=== PATIENT | female | born 1950 | race Caucasian/White ===

== ENCOUNTER 2019-08-21 10:20 | Outpatient (CLI) | payer MEDICARE, SELFPAY ==
--- NOTE | ~2019-08-21 | MM_ITS ---
EXAMINATION: MM screening [facility] BI w prabhu HISTORY: Screening mammogram TECHNIQUE: Craniocaudal and mediolateral oblique 3-D tomosynthesis images were obtained and synthetic 2-D images were generated. CAD analysis was submitted and interpreted. COMPARISON: 08/04/2018, 06/11/2017, 05/30/2016 bilateral digital screening mammogram examinations BREAST PARENCHYMAL COMPOSITION: There are scattered areas of fibroglandular density. FINDINGS: Mild stable right superolateral subareolar asymmetry since 06/09/2016. There is no evidence of suspicious mass, calcification, or architectural distortion to suggest malignancy in either breast . There has been no suspicious interval change. IMPRESSION: 1. No mammographic evidence of malignancy. 2. Recommend routine screening mammography in one year. BI-RADS Category 2: Benign finding(s). Reviewed, dictated and finalized at location A.
== END 2019-08-21 10:21 | disposition home or self-care (01) ==
LOC: ANHIMG 10:24
PROVIDERS: PCP Family Medicine; Visit Provider Family Medicine
DX: Z12.31 Encounter for screening mammogram for malignant neoplasm of breast (principal)
CPT/HCPCS: 77063; 77067

== ENCOUNTER 2020-09-21 15:06 | Outpatient (CLI) | payer MEDICARE, SELFPAY ==
--- NOTE | ~2020-09-21 | MM_ITS ---
EXAMINATION: MM screening [facility] BI w prabhu HISTORY: Screening TECHNIQUE: Craniocaudal and mediolateral oblique 3-D tomosynthesis images were obtained and synthetic 2-D images were generated. CAD analysis was submitted and interpreted. COMPARISON: Comparison to multiple prior studies sequentially, with oldest reviewed study dated 12/30. BREAST PARENCHYMAL COMPOSITION: There are scattered areas of fibroglandular density. FINDINGS: There is a periareolar mass in the right breast measuring approximately 6 mm. The left angel st is stable. IMPRESSION: 1. Right periareolar mass measuring 6 mm. 2. Additional spot compression and mediolateral views with possible follow-up breast ultrasound recom mended. BI-RADS Category 0: Incomplete: Needs additional imaging evaluation. Reviewed, dictated and finalized at location A. IMPRESSION: 1. Right periareolar mass measuring 6 mm. 2. Additional spot compression and mediolateral views with possible follow-up b reast ultrasound recommended. BI-RADS Category 0: Incomplete: Needs additional imaging evaluation.
== END 2020-09-21 15:07 | disposition home or self-care (01) ==
LOC: ANHIMG 15:07
PROVIDERS: PCP Family Medicine; Visit Provider Family Medicine
DX: Z12.31 Encounter for screening mammogram for malignant neoplasm of breast (principal)
CPT/HCPCS: 77063; 77067

== ENCOUNTER 2020-10-18 13:20 | Outpatient (CLI) | payer MEDICARE, SELFPAY ==
--- NOTE | ~2020-10-18 | MMUS_ITS ---
EXAMINATION: MM diagnostic mammo unilat RT, US breast RT limited HISTORY: Follow-up right breast asymmetries TECHNIQUE: Additional 3-D tomosynthesis images of the right breast were performed and synthetic 2-D i mages were generated. CAD analysis was submitted and interpreted. High resolution Limited right breas t ultrasound was performed. COMPARISON: Comparison to multiple prior studies sequentially, with oldest reviewed study dated 09/2015. BREAST PARENCHYMAL COMPOSITION: Breast composed of scattered areas of fibroglandular density. FINDINGS: MAMMOGRAPHIC FINDINGS: There are no suspicious masses, calcifications or architectural distortion with spot compression or m ediolateral views of the right breast. ULTRASOUND: Limited right breast ultrasound: Normal heterogeneous echotexture without focal mass. IMPRESSION: 1. No evidence for malignancy in the right breast. 2. Routine yearly screening mammogram and regular clinical breast examination are recommended. BI-RADS Category 1: Negative Reviewed, dictated and finalized at location A. IMPRESSION: 1. No evidence for malignancy in the right breast. 2. Routine yearly screening mammogram and regular clinical breast examination a re recommended. BI-RADS Category 1: Negative
== END 2020-10-18 13:21 | disposition home or self-care (01) ==
PROVIDERS: PCP Family Medicine; Visit Provider Family Medicine
DX: R92.8 Other abnormal and inconclusive findings on diagnostic imaging of breast (principal)
CPT/HCPCS: 76642; 77065

== ENCOUNTER 2021-12-13 14:39 | Outpatient (CLI) | payer MEDICARE, SELFPAY ==
--- NOTE | ~2021-12-13 | MM_ITS ---
EXAMINATION: MM screening [facility] BI w prabhu HISTORY: Screening TECHNIQUE: Craniocaudal and mediolateral oblique 3-D tomosynthesis images were obtained and synthetic 2-D images were generated. CAD analysis was submitted and interpreted. COMPARISON: Comparison to multiple prior studies sequentially, with oldest reviewed study dated 11/2016. BREAST PARENCHYMAL COMPOSITION: There are scattered areas of fibroglandular density. FINDINGS: There is no evidence of suspicious mass, calcification, or architectural distortion to sugg est malignancy in either breast. There has been no suspicious interval change. IMPRESSION: 1. No mammographic evidence of malignancy. 2. Recommend routine screening mammography in one year. BI-RADS Category 1: Negative Reviewed, dictated and finalized at location A.
== END 2021-12-13 14:40 | disposition home or self-care (01) ==
PROVIDERS: PCP Family Medicine; Visit Provider Family Medicine
DX: Z12.31 Encounter for screening mammogram for malignant neoplasm of breast (principal)
CPT/HCPCS: 77063; 77067

== ENCOUNTER 2023-03-11 09:34 | Outpatient (CLI) | payer MEDICARE, SELFPAY ==
--- NOTE | ~2023-03-11 | MM_ITS ---
EXAMINATION: MM screening [facility] BI w prabhu HISTORY: Screening mammogram TECHNIQUE: Craniocaudal and mediolateral oblique 3-D tomosynthesis images were obtained and synthetic 2-D images were generated. CAD analysis was submitted and interpreted. COMPARISON: 12/09/2021 bilateral screening mammogram 10/18/2020 diagnostic right mammogram and limited right breast ultrasound, reported negative 09/21/2020, 08/21/2019 bilateral screening mammogram examinations BREAST PARENCHYMAL COMPOSITION: There are scattered areas of fibroglandular density. FINDINGS: There is no evidence of suspicious mass, calcification, or architectural distortion to sugg est malignancy in either breast. There has been no suspicious interval change. IMPRESSION: 1. No mammographic evidence of malignancy. 2. Recommend routine screening mammography in one year. BI-RADS Category 1: Negative Reviewed, dictated and finalized at location A. TRICAL APPLIANCE SERVICER
== END 2023-03-11 09:35 | disposition home or self-care (01) ==
LOC: ANHIMG 09:35
PROVIDERS: PCP Family Medicine; Visit Provider Nurse Practitioner Family
DX: Z12.31 Encounter for screening mammogram for malignant neoplasm of breast (principal)
CPT/HCPCS: 77063; 77067

== ENCOUNTER 2025-02-01 10:27 | Emergency (ER) | payer MEDICARE, SELFPAY ==
--- NOTE | ~2025-02-01 | CT_ITS ---
EXAMINATION: CT abdomen pelvis wo con, 02/01/2025 13:30 CDT HISTORY: R flank pain COMPARISON: No comparisons available. TECHNIQUE: CT scan of the abdomen and pelvis was performed without IV contrast. One or more of the following dose reduction techniques were used: automated exposure control, adjustment of the mA and/or kV according to patient size, use of iterative reconstruction technique. Unless otherwise stated, incidental findings do not require dedicated follow up imaging FINDINGS: CT abdomen: LUNG BASES: Left lower lobe minimal infiltrate noted. LIVER: Unremarkable, liver contours intact, no lesions. SPLEEN: Unremarkable, no splenomegaly. KIDNEYS: Right Kidney: Right kidney peripelvic subcentimeter probable renal cysts. Left Kidney: Left kidney subcentimeter calcified probable hemorrhagic renal cyst 5 x 6 mm superior pole, outpatient ultrasound suggested. ADRENAL GLANDS: Unremarkable. PANCREAS: Mild pancreatic atrophy. GALLBLADDER/BILIARY: Post cholecystectomy. STOMACH AND ESOPHAGUS: Moderate hiatal hernia. BOWEL/MESENTERY: Moderate diverticulosis. Moderate fecal content. No colitis or diverticulitis. Appendix not identified. Mesentery normal. No thickened or dilated loops of small bowel. ADENOPATHY/RETROPERITONEUM: No lymphadenopathy. AORTA/VASCULATURE: Normal caliber aorta. FREE FLUID OR FREE AIR: Trace free fluid.. CT pelvis: SOLID ORGANS/REPRODUCTIVE: Post hysterectomy. No adnexal mass. BLADDER: Within normal limits. OSSEOUS STRUCTURES: No acute osseous abnormality.No suspicious lesions. OVERLYING SOFT TISSUES: Unremarkable. IMPRESSION: 1. No etiology identified to explain the patient's symptoms. Follow-up suggested if symptoms persist. Reviewed, dictated and finalized at location P. IMPRESSION: 1. No etiology identified to explain the patient's symptoms. Follow-up suggeste d if symptoms persist.
[2025-02-01 10:29] VITALS: BP 155/85; PULSE 86; RESP 16; TEMP 36.6; O2SAT 100
--- OUTSIDE RECORDS SUMMARY | 2025-02-01 11:29 | XMS_ITS | Clinical Summary ---
Author Organization [facility] Address [address] [place] [address] Phone Care Team Providers Care Spear Fisher Name Role Phone Jules Escobar MD Primary Care Provider [phone] Allergies No known active allergies Medications omeprazole (PRILOSEC) 20 mg Oral CpDR Take 20 mg by mouth daily. Active atorvastatin (LIPITOR) 20 mg Oral tablet Take 20 mg by mouth Daily LATE. Active LORATADINE/PSEUD OEPHEDRINE SUL (CLARITIN-D 24 HOUR ORAL) Take 1 Tab by mouth daily. 09/08/2010 Active Active Problems Problem Noted Date Diagnosed Date Primary localized osteoarthritis of left knee Anemia 09/26/2010 Overview (09/26/2010): Post-op, after receiving Lovenox prophylaxis. Atrial fibrillation with rapid ventricular respo nse 09/24/2010 Hypoxia 09/24/2010 Pain 09/24/2010 Nausea & vomiting 09/24/2010 Hypokalemia 09/24/2010 S/P VALERIE-BSO 09/24/2010 Hyperlipidemia 09/24/2010 Encounters Date Type Department Care Team Description 01/12/2025 External Device Data STL ABSTRACTION Provider, Abstract 01/05/2025 External Device Data STL ABSTRACTION Provider, Abstract 12/14/2024 1:00 PM CDT Office Visit [facility] the [facility] [address] [place] [address] Jayjay Hermosillo MD Primary localized osteoarthritis of left knee (Primary Dx) 11/20/2024 Telephone [facility] [address] [place] [address] [address] [place] [address] Jayjay Hermosillo MD reschedule appt 11/19/2024 10:30 AM CDT Office Visit [facility] [address] [place] [address] [address] [place] [address] Jayjay Hermosillo MD Left knee pain, unspecified chronicity (Primary Dx); Primary localized osteoarthritis of left knee 11/19/2024 Orders Only [facility] at the [address] [place] [address] Jayjay Hermosillo MD Primary localized osteoarthritis of left knee (Primary Dx) 11/19/2024 Orders Only [facility] at the [address] [place] [address] Jayjay Hermosillo MD Primary localized osteoarthritis of left knee (Primary Dx) 11/04/2024 External Device Data STL ABSTRACTION Provider, Abstract 11/04/2024 External Device Data STL ABSTRACTION Provider, Abstract 11/04/2024 External Device Data STL ABSTRACTION Provider, Abstract 11/04/2024 External Device Data STL ABSTRACTION Provider, Abstract from Last 3 Months Social History Tobacco Use Types Packs/Day Years Used Date Smoking Tobacco: Former Cigarettes 1.5 15 0 04/22/1972 - 04/22/1987 Alcohol Use Standard Drinks/Week Comments Yes 17.5 (1 standard drink = 0.6 oz pure alcohol) Comments Unknown Sex and Gender Information Value Date Recorded Sex Assigned at Not on file 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 Gender Identity Not on file Sexual Orientation Not on file Last Filed Vital Signs Vital Sign Reading Time Taken Comments Blood Pressure 141/61 10/29/2024 10:27 AM CDT Pulse 68 10/29/2024 10:27 AM CDT Temperature 36.7 C (98 F) 09/27/2010 7:41 AM CDT Respiratory Rate 14 09/27/2010 7:41 AM CDT Oxygen Saturation 93% 09/27/2010 7:41 AM CDT Inhaled Oxygen Concentration - - Weight 74.8 kg (165 lb) 12/14/2024 1:05 PM CDT Height 160 cm (5' 3) 12/14/2024 1:05 PM CDT Body Mass Index 29.23 12/14/2024 1:05 PM CDT Plan of Treatment Upcoming Encounters Date Type Department Care Team (Late st Contact Info) Description 07/20/2025 1:00 PM CDT Office Visit [facility] [address] [place] [address] Jayjay Hermosillo MD [address] [place] [address] Health Maintenance Due Date Last Done Comments DTAP/TDAP/TD VACCINES (1 - Tdap) 1968 COLORECTAL SCREENING 1994 Colorectal Cancer Screening 1994 FIT-DNA Q 3 years 1994 FIT/FOBT Q 1 year 1994 Flex Sig/CT Colonography Q 5 years 1994 PNEUMOCOCCAL VACCINE 50+ YEARS (1 of 1 - PCV) 06/16/19 00 ZOSTER VACCINE (1 of 2) 1999 OSTEOPOROSIS SCREENING 2014 RSV VACCINE (60+ or ) (1 - 1-dose 75+ series) 2024 INFLUENZA VACCINE (#1) 2024 Insurance [facility] [id number] [id number] Advance Directives For more information, please contact: [phone] * Full Code (Latest Code Status on File) Date Activated Date Inactivated Comments 09/26/2010 10:58 AM 09/27/2010 12:37 PM * Full Code Date Activated Date Inactivated Comments 09/21/2010 2:49 PM 09/26/2010 10:58 AM * Full Code Date Activated Date Inactivated Comments 09/21/2010 7:03 AM 09/21/2010 2:49 PM * Full Code Date Activated Date Inactivated Comments 09/21/2010 6:03 AM 09/21/2010 7:03 AM Care Teams Spear Fisher Relationship Specialty Start Date End Date Jules Escobar MD [address] [place] [id number] PCP - General Family Practice 08/31/10
--- OUTSIDE RECORDS SUMMARY | 2025-02-01 11:29 | XMS_ITS | Clinical Summary ---
Author Organization [facility] Address [address] [place] [id number] Care Team Providers Care Craft Artist Name Role Phone Jules Escobar MD Primary Care Provider [phone] Social History Tobacco Use Types Packs/Day Years Used Date Smoking Tobacco: Never Assessed Comments Unknown Sex and Gender Information Value Date Recorded Sex Assigned at Not on file Legal Sex Female 4:54 PM CDT Gender Identity Not on file Sexual Orientation Not on file Plan of Treatment Health Maintenance Due Date Last Done Comments Colorectal Cancer Screening Colonoscopy (10 Years) 1949 Hepatitis C 1967 DTaP, Tdap and Td Vaccines ( 1 - Tdap) 1968 Pneumococcal Vaccine: 50+ Ye ars (1 of 1 - PCV) 1999 Zoster Vaccines (1 of 2) 1999 Dexa Scan (General) 2014 RSV Immunization or 60+ Years (1 - 1-dose 75+ series) 2024 COVID-19 Vaccine (1 - 2023-2 5 season) 2024 Influenza Adult (#1) 2025 Meningococcal B Vaccine Aged Out No l onger eligible based on patient's age to complete this topic Meningococcal Vaccine Aged Out No christian justine eligible based on patient's age to complete this topic RSV Immunizations Under 20 Months Aged Out No longer eligible based on patient's age to complete this topic Care Teams Craft Artist Relationship Specialty Start Date End Date Jules Escobar MD [address] [place] [id number] PCP - General 01/11/15
--- NOTE | 2025-02-01 13:25 | ED.ABDPAIN ---
HPI - Abdominal Pain General Chief Complaint: Abdominal Pain <LAVERN Larson Last Filed: 02/01/25 13:40> Stated Complaint: right flank pain <LAVERN Larson Last Filed: 02/01/25 13:40> Time Seen by Provider: 02/01/25 13:25 <LAVERN Larson Last Filed: 02/01/25 13:40> Focused HPI: Patient is a 74-year-old female who presents the ED with report of right flank pain. Patient reports she began having pain in her right flank, right-sided abdomen in the middle of the night last night. States pain is worse with movement. She has not taken anything for the pain. Denies ever having pain like this before. Denies previous history of kidney stones. States she was referred to the ED by her primary care doctor. Denies N/V/D, constipation, dysuria, hematuria, fevers. GENERAL: Well-appearing, well-nourished, and in no acute distress. HEAD: Normocephalic, atraumatic. CHEST: Clear to auscultation. ?No respiratory distress. HEART: Regular rate and rhythm.? MSK: TTP throughout R lateral abdomen, R flank region. NEURO: ?Alert and oriented x3. Patient screened in triage and initial orders placed.? ?Additional care and disposition to be based upon?diagnostic testing and treatment. <Yovana Raphael PA-C - Last Filed: 02/01/25 13:40> Source: patient <LAVERN Larson Last Filed: 02/01/25 13:40> Mode of arrival: ambulatory <LAVERN Larson Last Filed: 02/01/25 13:40> Limitations: no limitations <LAVERN Larson Last Filed: 02/01/25 13:40> History of Present Illness HPI narrative: Agree with HPI. Patient reports yesterday she did lift a heavy duct event and she also threw herself onto a bed injuring her right side. Right-sided hurt her worse this morning when she woke up and was worse with physical movements and direct palpation. No difficulty breathing. No GI issues. <Andi Martinez MD - Last Filed: 02/01/25 16:12> Related Data Allergies/Adverse Reactions: Allergies Allergy/AdvReac Type Severity Reaction Status Date / Time chlorhexidine Allergy Unknown Rash Verified 02/01/25 13:45 sulfamethoxazole Allergy Unknown Rash Verified 02/01/25 13:45 <Yovana Raphael PA-C - Last Filed: 02/01/25 13:40> Review of Systems Review of Systems: All systems reviewed & are unremarkable except as noted in HPI and below <Andi Martinez MD - Last Filed: 02/01/25 16:12> Constitutional: Constitutional: Reports no additional constitutional complaints <Andi Martinez MD - Last Filed: 02/01/25 16:12> Cardiovascular: Cardiovascular: Reports no additional cardiovascular complaints <Andi Martinez MD - Last Filed: 02/01/25 16:12> Respiratory: Respiratory: Reports no additional respiratory complaints <Andi Martinez MD - Last Filed: 02/01/25 16:12> Gastrointestinal: Gastrointestinal: Reports no additional gastrointestinal complaints <Andi Martinez MD - Last Filed: 02/01/25 16:12> REPLACED BY [facility] Past Medical History Medical History: Medical History Degenerative joint disease of knee Left knee pain Mixed hyperlipidemia GERD (gastroesophageal reflux disease) Allergic rhinitis Overweight (BMI 25.0-29.9) Family history of stroke Family history of diabetes mellitus <Yovana Raphael PA-C - Last Filed: 02/01/25 13:40> Surgical History Surgical History: Surgical History Hx of cholecystectomy History of hysterectomy <Yovana Raphael PA-C - Last Filed: 02/01/25 13:40> Family History Family History: Family History Father Heart disease Mother Cataract Pancreatic cancer <Yovana Raphael PA-C - Last Filed: 02/01/25 13:40> Social History Social History: Social History Smoking status: Never smoker Alcohol intake: current Substance use type: does not use Lack of Transportation: No Lack of Food: Sometimes True Current Housing: I Have Housing Concerned About Future Housing: No Difficulty Paying Gas/Electric Bills: No Difficulty Paying for Meds: No Currently Unemployed: No Education: High School Diploma/GED Difficulty w/ Childcare or Family Care: No Gender identity (if verbalized by the patient): Female <Yovana Raphael PA-C - Last Filed: 02/01/25 13:40> Exam Narrative: GENERAL: Well-appearing, well-nourished, and in no acute distress. HEAD: Normocephalic, atraumatic. ENT: Mucous membranes moist. CHEST: Clear to auscultation. No respiratory distress. HEART: Regular rate and rhythm. Normal peripheral pulses. ABDOMEN: Soft, nontender, nondistended. No CVA tenderness. Mild discomfort over the obliques in the mid-axillary line EXTREMITIES: Normal range of motion. No edema. SKIN: Warm, dry, no rash. NEURO: Alert and oriented x3. PSYCH: Normal mood and affect. <Andi Martinez MD - Last Filed: 02/01/25 16:12> Course Course Emergency Course: Patient informed of results. White blood cell count 11.8, CMP unremarkable. Urinalysis with slight UTI. Appropriate for discharge home. CT without acute process. <Andi Martinez MD - Last Filed: 02/01/25 16:12> Vital Signs Vital signs: Vital Signs Temperature 97.9 F 02/01/25 10:29 Pulse Rate 86 02/01/25 10:29 Respiratory Rate 16 02/01/25 10:29 Blood Pressure 155/85 H 02/01/25 10:29 Pulse Oximetry 100 02/01/25 10:29 Oxygen Delivery Room Air 02/01/25 10:29 Temperature 97.9 F 02/01/25 10:29 Pulse Rate 82 02/01/25 16:00 Respiratory Rate 18 02/01/25 16:00 Blood Pressure 151/81 H 02/01/25 16:00 Pulse Oximetry 99 02/01/25 16:00 Oxygen Delivery Room Air 02/01/25 16:00 <Yovana Raphael PA-C - Last Filed: 02/01/25 13:40> Vital Signs Temperature 97.9 F 02/01/25 10:29 Pulse Rate 86 02/01/25 10:29 Respiratory Rate 16 02/01/25 10:29 Blood Pressure 155/85 H 02/01/25 10:29 Pulse Oximetry 100 02/01/25 10:29 Oxygen Delivery Room Air 02/01/25 10:29 Temperature 97.9 F 02/01/25 10:29 Pulse Rate 82 02/01/25 16:00 Respiratory Rate 18 02/01/25 16:00 Blood Pressure 151/81 H 02/01/25 16:00 Pulse Oximetry 99 02/01/25 16:00 Oxygen Delivery Room Air 02/01/25 16:00 <Andi Martinez MD - Last Filed: 02/01/25 16:12> MDM - Abdominal Pain MDM Narrative Medical decision making narrative: MSE by TONY in triage. <Yovana Raphael PA-C - Last Filed: 02/01/25 13:40> Lab Data Result diagrams: 02/01/25 13:53 02/01/25 13:53 <Yovana Raphael PA-C - Last Filed: 02/01/25 13:40> Labs: Lab Results 02/01/25 02/01/25 Range/Units 13:53 15:43 WBC 11.8 H (4.5-10.0) K/mm3 RBC 4.28 (4.2-5.4) M/mm3 Hgb 14.4 (12.0-15.0) g/dL Hct 43.2 (37.0-47.0) % MCV 100.9 H (80-100) fl MCH 33.6 (26-34) pg MCHC 33.3 (32-36) g/dl RDW 13.4 (11.5-14.5) % Plt Count 203 (150-375) k/mm3 MPV 10.2 (7.4-10.4) fl Immature Gran % (Auto) 0.3 (0-0.5) % Neut % (Auto) 69.4 (45.5-73.1) % Lymph % (Auto) 22.8 (18.3-44.2) % [place] % (Auto) 6.9 (2.6-8.5) % Eos % (Auto) 0.2 (0-4.4) % Baso % (Auto) 0.4 (0.2-1.2) % Lymph # (Auto) 2.69 (0.9-3.2) K/mm3 [place] # (Auto) 0.8 H (0.1-0.6) K/mm3 Eos # (Auto) 0.0 (0-0.3) K/mm3 Baso # (Auto) 0.1 (0.0-0.1) K/mm3 Abs Immat Gran (auto) 0.03 (0.00-0.031) K/mm3 Absolute Neuts (auto) 8.2 H (1.3-6.7) K/mm3 Absolute Nucleated RBC 0.000 (0.0-0.012) K/mm3 Nucleated RBC % 0.0 (0.0-0.2) % Sodium 138 (137-145) mmol/L Potassium 3.9 (3.4-5.0) mmol/L Chloride 104 (98-107) mmol/L Carbon Dioxide 27 (22-30) mmol/L Anion Gap 7 (4-12) mmol/L BUN 18 H (7-17) mg/dL Creatinine 0.93 (0.7-1.0) mg/dL Estim Creat Clear Calc 44 ml/min Estimated GFR 59 (59 - ) Glucose 95 (65-110) mg/dL Calcium 9.2 (8.4-10.2) mg/dL Total Bilirubin 1.0 (0.2-1.3) mg/dL AST 31 (14-36) U/L ALT 24 (6-35) U/L Alkaline Phosphatase 110 (38-126) U/L Total Protein 7.5 (6.3-8.2) g/dL Albumin 4.1 (3.5-5.1) g/dL Lipase 81 (23-300) U/L Urine Color Dark yellow (Yellow) Urine Appearance Cloudy H (Clear) Urine pH 5.0 (5.0-9.0) Ur Specific Jenner 1.023 (1.001-1.035) Urine Protein Negative (Negative) mg/dL Urine Glucose (UA) Negative (Negative) mg/dL Urine Ketones Trace H (Negative) mg/dL Ur Blood (Man) Negative (Negative) Urine Nitrate Negative (Negative) Urine Bilirubin Negative (Negative) Urine Urobilinogen 1.0 (<2.0) mg/dL Leukocyte Esterase Rfl Negative (Negative) TOÑO/UL Urine RBC 0-2 (0-2) /hpf Urine WBC 6-10 H (0-3) /hpf Ur Squamous Epith Cells Moderate (Few) /hpf Urine Bacteria 1+ H /hpf Urine Casts 0-2 <Yovana Raphael PA-C - Last Filed: 02/01/25 13:40> Lab Results 02/01/25 02/01/25 Range/Units 13:53 15:43 WBC 11.8 H (4.5-10.0) K/mm3 RBC 4.28 (4.2-5.4) M/mm3 Hgb 14.4 (12.0-15.0) g/dL Hct 43.2 (37.0-47.0) % MCV 100.9 H (80-100) fl MCH 33.6 (26-34) pg MCHC 33.3 (32-36) g/dl RDW 13.4 (11.5-14.5) % Plt Count 203 (150-375) k/mm3 MPV 10.2 (7.4-10.4) fl Immature Gran % (Auto) 0.3 (0-0.5) % Neut % (Auto) 69.4 (45.5-73.1) % Lymph % (Auto) 22.8 (18.3-44.2) % [place] % (Auto) 6.9 (2.6-8.5) % Eos % (Auto) 0.2 (0-4.4) % Baso % (Auto) 0.4 (0.2-1.2) % Lymph # (Auto) 2.69 (0.9-3.2) K/mm3 [place] # (Auto) 0.8 H (0.1-0.6) K/mm3 Eos # (Auto) 0.0 (0-0.3) K/mm3 Baso # (Auto) 0.1 (0.0-0.1) K/mm3 Abs Immat Gran (auto) 0.03 (0.00-0.031) K/mm3 Absolute Neuts (auto) 8.2 H (1.3-6.7) K/mm3 Absolute Nucleated RBC 0.000 (0.0-0.012) K/mm3 Nucleated RBC % 0.0 (0.0-0.2) % Sodium 138 (137-145) mmol/L Potassium 3.9 (3.4-5.0) mmol/L Chloride 104 (98-107) mmol/L Carbon Dioxide 27 (22-30) mmol/L Anion Gap 7 (4-12) mmol/L BUN 18 H (7-17) mg/dL Creatinine 0.93 (0.7-1.0) mg/dL Estim Creat Clear Calc 44 ml/min Estimated GFR 59 (59 - ) Glucose 95 (65-110) mg/dL Calcium 9.2 (8.4-10.2) mg/dL Total Bilirubin 1.0 (0.2-1.3) mg/dL AST 31 (14-36) U/L ALT 24 (6-35) U/L Alkaline Phosphatase 110 (38-126) U/L Total Protein 7.5 (6.3-8.2) g/dL Albumin 4.1 (3.5-5.1) g/dL Lipase 81 (23-300) U/L Urine Color Dark yellow (Yellow) Urine Appearance Cloudy H (Clear) Urine pH 5.0 (5.0-9.0) Ur Specific Jenner 1.023 (1.001-1.035) Urine Protein Negative (Negative) mg/dL Urine Glucose (UA) Negative (Negative) mg/dL Urine Ketones Trace H (Negative) mg/dL Ur Blood (Man) Negative (Negative) Urine Nitrate Negative (Negative) Urine Bilirubin Negative (Negative) Urine Urobilinogen 1.0 (<2.0) mg/dL Leukocyte Esterase Rfl Negative (Negative) TOÑO/UL Urine RBC 0-2 (0-2) /hpf Urine WBC 6-10 H (0-3) /hpf Ur Squamous Epith Cells Moderate (Few) /hpf Urine Bacteria 1+ H /hpf Urine Casts 0-2 <Andi Martinez MD - Last Filed: 02/01/25 16:12> Imaging Data Radiologist's impression: ITS Impressions Abdomen/Pelvis CT 02/01/25 13:52 IMPRESSION: 1. No etiology identified to explain the patient's symptoms. Follow-up suggested if symptoms persist. <Yovana Raphael PA-C - Last Filed: 02/01/25 13:40> ITS Impressions Abdomen/Pelvis CT 02/01/25 13:52 IMPRESSION: 1. No etiology identified to explain the patient's symptoms. Follow-up suggested if symptoms persist. <Andi Martinez MD - Last Filed: 02/01/25 16:12> Discharge Plan Discharge Clinical Impression: Acute UTI <Yovana Raphael PA-C - Last Filed: 02/01/25 13:40> Patient Disposition: Home <Yovana Raphael PA-C - Last Filed: 02/01/25 13:40> Condition: Stable <LAVERN Larson Last Filed: 02/01/25 13:40> Instructions: Antibiotic Form, Urinary Tract Infection in Women (ED) <Yovana Raphael PA-C - Last Filed: 02/01/25 13:40> Additional Instructions: You should return to the emergency department if you develop severe nausea and vomiting and are unable to keep liquids down, if you develop severe back/flank or stomach pain, or if your symptoms are not clearly improving at home. <Yovana Raphael PA-C - Last Filed: 02/01/25 13:40> Patient Language: New Zealander <LAVERN Larson Last Filed: 02/01/25 13:40> Prescriptions: New cephalexin 500 mg capsule 500 mg PO Q12H Qty: 10 0RF No Action atorvastatin 20 mg tablet See Rx Instructions .ROUTE .COMPLEX Qty: 100 1RF Dose Instruction: TAKE 1 TABLET BY MOUTH DAILY Rx Instructions: TAKE 1 TABLET BY MOUTH DAILY omeprazole 20 mg capsule,delayed release(DR/EC) See Rx Instructions .ROUTE .COMPLEX Qty: 100 1RF Dose Instruction: TAKE 1 CAPSULE BY MOUTH DAILY Rx Instructions: TAKE 1 CAPSULE BY MOUTH DAILY lisinopril 10 mg tablet 10 mg PO DAILY Qty: 90 1RF Wal-itin D 10-240 mg tablet extended release 24 hr See Rx Instructions .ROUTE .COMPLEX Qty: 90 2RF Dose Instruction: TAKE 1 TABLET BY MOUTH EVERY DAY NEEDED FOR ALLERGY SYMPTOMS Rx Instructions: TAKE 1 TABLET BY MOUTH EVERY DAY NEEDED FOR ALLERGY SYMPTOMS <Yovana Raphael PA-C - Last Filed: 02/01/25 13:40> Follow-up/Referrals: Arpit Henderson MD [Primary Care Provider, [facility]] - 1 Week <Yovana Raphael PA-C - Last Filed: 02/01/25 13:40>
[2025-02-01] MEDS: HYDROcodone/acetaminophen (*CRX) 5-325 MG TABLET 1 TAB PO (13:51)
[2025-02-01 13:54] VITALS: BP 158/87; PULSE 74; RESP 15; O2SAT 100
[2025-02-01 14:02] LABS: Hematocrit 43.2 % (37.0-47.0); Hemoglobin 14.4 g/dL (12.0-15.0); Immature Granulocyte Percent A 0.3 % (0-0.5); Lymphocytes Absolute Auto 2.69 K/mm3 (0.9-3.2); Mean Corpuscular HGB Conc 33.3 g/dl (32-36); Mean Corpuscular Hemoglobin 33.6 pg (26-34); Mean Corpuscular Volume 100.9 fl (80-100); Nucleated Red Blood Cells Absolute Auto 0.000 K/mm3 (0.0-0.012); Nucleated Red Blood Cells Perc 0.0 % (0.0-0.2); Platelet Count Result 203 k/mm3 (150-375); Red Blood Count 4.28 M/mm3 (4.2-5.4); White Blood Count 11.8 K/mm3 (4.5-10.0)
[2025-02-01 14:24] LABS: Alanine Aminotransferase 24 U/L (6-35); Albumin Level 4.1 g/dL (3.5-5.1); Alkaline Phosphatase 110 U/L (38-126); Anion Gap 7 mmol/L (4-12); Aspartate Amino Transferase 31 U/L (14-36); Bilirubin,Total 1.0 mg/dL (0.2-1.3); Blood Urea Nitrogen 18 mg/dL (7-17); Calcium 9.2 mg/dL (8.4-10.2); Carbon Dioxide 27 mmol/L (22-30); Chloride 104 mmol/L (98-107); Estimated CRCL calculation 44 ml/min; Estimated Glomerular Filt Rate 59; Glucose 95 mg/dL (65-110); Lipase 81 U/L (23-300); Potassium 3.9 mmol/L (3.4-5.0); Sodium 138 mmol/L (137-145); Total Protein 7.5 g/dL (6.3-8.2)
[2025-02-01 15:53] LABS: Add Urine Microscopic? YES; Appearance Urine Cloudy (Clear); Glucose Urine UA Negative (Negative); Leukocyte Esterase Ur Negative LEU/UL (Negative); Nitrate Urine Negative (Negative); Non Pathogenic Casts 0-2; Specific Grav Ur 1.023 (1.001-1.035)
[2025-02-01 16:00] VITALS: BP 151/81; PULSE 82; RESP 18; O2SAT 99
--- OUTSIDE RECORDS SUMMARY | 2025-02-01 16:21 | XMS_ITS | Clinical Summary ---
Author Organization [facility] Address [address] [place] [id number] Care Team Providers Care Seaman Name Role Phone Jules Escobar MD Primary Care Provider [phone]- [phone] Social History Tobacco Use Types Packs/Day Years [...] age to complete this topic Care Teams Seaman Relationship Specialty Start Date End Date Jules Escobar MD [address] [place] [id number] PCP - General 01/11/15
--- OUTSIDE RECORDS SUMMARY | 2025-02-01 16:21 | XMS_ITS | Clinical Summary ---
Author Organization [facility] Address [address] [place] [address] Phone Care Team Providers Care Shipping Clerk Crating Name Role Phone Jules Escobar MD Primary Care Provider Allergies No known active allergies Medications omeprazole [...] Abstract 12/14/2024 1:00 PM CDT Office Visit [facility] the [facility] [address] [place] [address] Jayjay Hermosillo MD Primary localized osteoarthritis of left knee (Primary Dx) 11/20/2024 Telephone [facility] at the [facility] [address] [place] [address] [address] [place] [address] Jayjay Hermosillo MD reschedule appt 11/19/2024 10:30 AM CDT Office Visit [facility] the [facility] [address] [place] [address] [address] [place] [address] Jayjay Hermosillo MD Left knee pain, unspecified chronicity (Primary Dx); Primary localized osteoarthritis of left knee 11/19/2024 Orders Only [facility] at the [address] [place] [address] Jayjay Hermosillo MD Primary localized osteoarthritis of left knee (Primary Dx) 11/19/2024 Orders Only [facility] at the [address] [place] [address] Jayjay Hermosillo MD Primary localized osteoarthritis of [...] on file 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 Gender Identity Not on file Sexual Orientation [...] Description 07/20/2025 1:00 PM CDT Office Visit [facility] at the [facility] [address] [place] [address] Jayjay Hermosillo MD [address] [place] [address] Health Maintenance Due Date Last [...] series) 2024 INFLUENZA VACCINE (#1) 2024 Insurance [facility] [id number] [place] [id number] Advance Directives For more information, please contact: [phone] * Full Code (Latest Code Status on File) Date Activated Date Inactivated Comments 09/26/2010 10:58 AM 09/27/2010 12:37 PM * Full Code Date Activated Date Inactivated Comments 09/21/2010 2:49 PM 09/26/2010 10:58 AM * Full Code Date Activated Date Inactivated Comments 09/21/2010 7:03 AM 09/21/2010 2:49 PM * Full Code Date Activated Date Inactivated Comments 09/21/2010 6:03 AM 09/21/2010 7:03 AM Care Teams Shipping Clerk Crating Relationship Specialty Start Date End Date Jules Escobar MD [address] [place] [id number] PCP - General Family Practice 08/31/10
[2025-02-01 16:45] VITALS: BP 145/75; PULSE 74; RESP 19; O2SAT 98
== END 2025-02-01 16:47 | disposition home or self-care (01) ==
LOC: ANHED 16:16
PROVIDERS: Physician Assistant; Emergency Provider Emergency Medicine; PCP Family Medicine
DX: N39.0 Urinary tract infection, site not specified (principal); E78.5 Hyperlipidemia, unspecified; K21.9 Gastro-esophageal reflux disease without esophagitis
CPT/HCPCS: 36415; 74176; 80053; 81001; 83690; 85025; 99284; A9270